=== PATIENT | female | born 1950 | race Caucasian/White ===

== ENCOUNTER 2025-03-28 12:37 | Emergency (ER) | payer MEDICARE | END 2025-03-28 14:27 | disposition home or self-care (01) | LOC: BURERS 12:37 | DX: S00.12XA Contusion of left eyelid and periocular area, initial encounter (principal); S80.01XA Contusion of right knee, initial encounter; S51.811A Laceration without foreign body of right forearm, initial encounter; I10 Essential (primary) hypertension; E78.5 Hyperlipidemia, unspecified; E11.9 Type 2 diabetes mellitus without complications; W01.0XXA Fall on same level from slipping, tripping and stumbling without subsequent striking against object, initial encounter; Y92.89 Other specified places as the place of occurrence of the external cause; Z79.84 Long term (current) use of oral hypoglycemic drugs; Z79.899 Other long term (current) drug therapy; Z79.4 Long term (current) use of insulin | CPT/HCPCS: 70450; 70486 ==